=== PATIENT | female | born 1960 | race Caucasian/White ===

== ENCOUNTER 2017-04-14 10:32 | Outpatient (CLI) | payer BC ==
--- NOTE | 2017-04-14 13:23 | MMO ---
BILATERAL SCREENING MAMMOGRAMS: Date: 04/14/17 Comparison made to prior exams from 2013 and 2014. This patient's mammogram was interpreted with the assistance of computer-aided detection. FINDINGS: Heterogeneously dense glandular pattern. No evidence of mass or distortion. No suspicious calcificati on identified. Recommend one year follow-up. IMPRESSION: BIRADS 1: Negative POS: [facility]
== END 2017-04-14 10:33 | disposition home or self-care (01) ==
LOC: MAMMO 10:32
PROVIDERS: ATTEND Student in an Organized Health Care Education/Training Program
DX: Z12.31 Encounter for screening mammogram for malignant neoplasm of breast (principal)
CPT/HCPCS: 77067; G0202

== ENCOUNTER 2018-07-05 08:03 | Outpatient (CLI) | payer BC | END 2018-07-05 08:04 | disposition home or self-care (01) | LOC: BICMAMMO 08:03 | PROVIDERS: ATTEND Student in an Organized Health Care Education/Training Program | DX: Z12.31 Encounter for screening mammogram for malignant neoplasm of breast (principal) | CPT/HCPCS: 77063; 77067 ==

== ENCOUNTER 2020-08-28 07:41 | Outpatient (CLI) | payer BC | END 2020-08-28 07:42 | disposition home or self-care (01) | LOC: BICMAMMO 07:41 | PROVIDERS: ATTEND Physician Assistant | DX: Z13.820 Encounter for screening for osteoporosis (principal); Z82.62 Family history of osteoporosis | CPT/HCPCS: 77080 ==

== ENCOUNTER 2022-10-29 13:50 | Outpatient (CLI) | payer BC | END 2022-10-29 13:51 | disposition home or self-care (01) | LOC: BICRAD 13:50 | PROVIDERS: ATTEND Family Medicine | DX: M25.552 Pain in left hip (principal); M16.12 Unilateral primary osteoarthritis, left hip ==